=== PATIENT | female | born 2005 | race Hispanic/Latino ===

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

== ENCOUNTER 2023-10-23 23:48 | Emergency (ER) | payer SELFPAY ==
[2023-10-24 00:40] LABS: Bilirubin Neg (Negative); Blood, Urine 50 (Negative); Clarity Clear (Clear); Glucose, Urine (Dipstick) Normal (Negative); Ketone, Urine Negative (Negative); Leukocyte 500 (Negative); Nitrite Negative (Negative); Protein, Urine (Dipstick) Negative (Neg-Trace); Urobilinogen Normal mg/dL (Less than 2)
[2023-10-24 00:43] LABS: Pregnancy Test - Urine (BHCG) Negative (Negative); Pregu Control Background? CLEAR/WHITE (CLR/WHITE); Pregu Control Bar Appear? YES (CONTROL BAR)
[2023-10-24 00:47] LABS: Bacteria/HPF 3+ HPF (None Seen); CAUTI Indications for Culture Pelvic or flank pain; RBC/HPF 0-3 HPF (0-3); Squamous Epithelial 0-3 HPF (0-3)
[2023-10-24 00:48] LABS: Urine Culture Reflex No No
[2023-10-24] MEDS ORDERED: Ketorolac Tromethamine 30 MG (1 mL) VIAL ONE ×2 (01:13→02:48)
[2023-10-24] MEDS ORDERED: Acetaminophen 500 MG TAB ONE (02:49)
== END 2023-10-24 03:24 | disposition home or self-care (01) ==
LOC: CSHERS 23:48
DX: N10 Acute pyelonephritis (principal); Z55.9 Problems related to education and literacy, unspecified
CPT/HCPCS: 74176; 81001; 81025; 96374; 96376; J1885

== ENCOUNTER 2024-01-02 12:10 | Emergency (ER) | payer MEDICAID, SELFPAY ==
[2024-01-02] MEDS ORDERED: Metoclopramide HCl 10 MG (2 mL) VIAL ONE (12:48)
[2024-01-02] MEDS ORDERED: Acetaminophen 500 MG TAB ONE (12:48)
[2024-01-02 13:12] LABS: Bilirubin Neg (Negative); Blood, Urine Negative (Negative); Glucose, Urine (Dipstick) Normal (Negative); Ketone, Urine Negative (Negative); Leukocyte 500 (Negative); Nitrite Negative (Negative); Protein, Urine (Dipstick) 15 mg/dl (Neg-Trace); Specific Gravity, Urine 1.015 (1.005-1.030); Urobilinogen Normal mg/dL (Less than 2); pH, Urine 6.5 (5.0-9.0)
[2024-01-02 13:13] LABS: #Basophils 0.05 10x3/uL (0.0-0.2); #Eosinphils 0.09 10x3/uL (0.0-0.5); #Neutrophils 6.34 10x3/uL (1.5-8.4); %Basophils 0.6 % (0.0-2.0); %Eosinophils 1.1 % (0.0-6.0); %Lymphocytes 16.9 % (18.0-47.0); %Monocytes 5.9 % (0.0-10.0); %Neutrophils 75.3 % (40.0-75.0); Hematocrit 36.4 % (34.9-44.5); Mean Corpuscular Hemoglobin 27.2 pg (27.0-33.0); Mean Corpuscular Volume 82.5 fl (81.6-98.3); Mean Platelet Volume 10.9 fl (7.4-10.4); Platelet Count 252 10x3/uL (150-450); RBC Distribution Width 14.6 % (11.5-14.5); Red Blood Cell (RBC) Count 4.41 10x6/uL (3.90-5.03); White Blood Cell (WBC) Count 8.4 10x3/uL (3.5-10.5)
[2024-01-02 13:24] LABS: ALT (SGPT) 11 U/L (8-55); AST (SGOT) 13 U/L (5-34); Albumin 3.6 g/dL (3.5-5.0); Alkaline Phosphatase 113 U/L (40-100); Anion Gap 12 mmol/L (10-20); BUN (Urea Nitrogen) 7 mg/dL (7.0-18.7); Bilirubin, Total 0.3 mg/dL (0.2-1.2); Calc. Creatinine Clearance 0 mL/min (70-130); Carbon Dioxide 19 mmol/L (22-29); Chloride 107 mmol/L (98-107); Estimated GFR 129; Globulin 3.3 g/dL (2.4-3.5); Glucose 85 mg/dL (70-105); Lipase 11 U/L (8-78); Potassium 3.9 mmol/L (3.5-5.1); Protein, Total 6.9 g/dL (6.0-8.3); Sodium 134 mmol/L (136-145)
[2024-01-02 13:35] LABS: Clarity Hazy (Clear)
[2024-01-02 13:41] LABS: CAUTI Indications for Culture Pelvic or flank pain; RBC/HPF None Seen HPF (0-3)
[2024-01-02 13:42] LABS: Bacteria/HPF Rare-Few HPF (None Seen); Mucous/LPF 1+ LPF (<2+)
[2024-01-02 13:43] LABS: Urine Culture Reflex No No
== END 2024-01-02 17:04 | disposition home or self-care (01) ==
LOC: CSHERS 12:10
DX: O23.41 Unspecified infection of urinary tract in pregnancy, first trimester (principal); N39.0 Urinary tract infection, site not specified; O99.281 Endocrine, nutritional and metabolic diseases complicating pregnancy, first trimester; E87.1 Hypo-osmolality and hyponatremia; Z3A.13 13 weeks gestation of pregnancy
CPT/HCPCS: 76856; 80053; 81001; 83690; 84702; 85025; 87086; 87480; 87510; 87660; 96374; J2765

== ENCOUNTER 2024-02-12 17:58 | Emergency (ER) | payer MEDICAID, SELFPAY ==
[2024-02-12 19:28] LABS: #Basophils 0.04 10x3/uL (0.0-0.2); #Eosinphils 0.14 10x3/uL (0.0-0.5); #Monocytes 0.55 10x3/uL (0.0-1.1); #Neutrophils 7.35 10x3/uL (1.5-8.4); %Basophils 0.4 % (0.0-2.0); %Eosinophils 1.4 % (0.0-6.0); %Lymphocytes 15.9 % (18.0-47.0); %Monocytes 5.7 % (0.0-10.0); %Neutrophils 76.2 % (40.0-75.0); Hematocrit 36.9 % (34.9-44.5); Hemoglobin 12.6 g/dL (12.0-15.5); Mean Corpuscular HGB CONC 34.1 g/dL (32.0-36.0); Mean Corpuscular Hemoglobin 28.4 pg (27.0-33.0); Mean Corpuscular Volume 83.3 fL (81.6-98.3); Mean Platelet Volume 10.8 fL (7.4-10.4); Platelet Count 229 10x3/uL (150-450); RBC Distribution Width 14.2 % (11.5-14.5); Red Blood Cell (RBC) Count 4.43 10x6/uL (3.90-5.03); White Blood Cell (WBC) Count 9.7 10x3/uL (3.5-10.5)
[2024-02-12 19:45] LABS: ALT (SGPT) 10 U/L (8-55); AST (SGOT) 14 U/L (5-34); Albumin 3.3 g/dL (3.5-5.0); Alkaline Phosphatase 100 U/L (40-100); Anion Gap 12 mmol/L (10-20); BUN (Urea Nitrogen) 7 mg/dL (7.0-18.7); Bilirubin, Total 0.2 mg/dL (0.2-1.2); Calc. Creatinine Clearance 0 mL/min (70-130); Calcium 9.1 mg/dL (7.8-10.44); Carbon Dioxide 22 mmol/L (22-29); Chloride 105 mmol/L (98-107); Estimated GFR 130; Globulin 3.8 g/dL (2.4-3.5); Glucose 85 mg/dL (70-105); Lipase 13 U/L (8-78); Potassium 3.9 mmol/L (3.5-5.1); Protein, Total 7.1 g/dL (6.0-8.3); Sodium 135 mmol/L (136-145)
[2024-02-12 21:53] LABS: Bilirubin Neg (Negative); Blood, Urine Negative (Negative); Clarity Clear (Clear); Glucose, Urine (Dipstick) Normal (Negative); Ketone, Urine 50 mg/dL (Negative); Leukocyte 500 (Negative); Nitrite Negative (Negative); Protein, Urine (Dipstick) 15 mg/dl (Neg-Trace); Specific Gravity, Urine 1.015 (1.005-1.030); Urobilinogen Normal mg/dL (Less than 2); pH, Urine 6.5 (5.0-9.0)
[2024-02-12 22:06] LABS: CAUTI Indications for Culture Pelvic or flank pain
[2024-02-12 22:07] LABS: Bacteria/HPF 2+ HPF (None Seen); RBC/HPF 0-3 HPF (0-3); Transitional Epithelial 0-3 HPF (None Seen)
[2024-02-12 22:09] LABS: Urine Culture Reflex Yes Yes
[2024-02-13 20:32] LABS: Chlamydia by PCR, Vaginal Swab Not Detected (NotDetected); GC by PCR, Vaginal Swab Not Detected (NotDetected)
== END 2024-02-12 22:00 | disposition home or self-care (01) ==
LOC: CSHERS 17:58
DX: O23.41 Unspecified infection of urinary tract in pregnancy, first trimester (principal); N39.0 Urinary tract infection, site not specified; O20.9 Hemorrhage in early pregnancy, unspecified; Z3A.13 13 weeks gestation of pregnancy
CPT/HCPCS: 36415; 76801; 80053; 81001; 83690; 84702; 85025; 86900; 86901; 87086; 87480; 87491; 87510; 87591; 87660

== ENCOUNTER 2024-05-05 14:48 | Day surgery (SDC) | payer MEDICAID ==
[2024-05-05 15:23] VITALS: BMI 30.1
[2024-05-05] MEDS ORDERED: hydrALAZINE 20 MG/ML VIAL SLOW IVP PRN (15:33)
[2024-05-05] MEDS ORDERED: Morphine 4 MG/ML VIAL SLOW IVP PRN (16:46)
[2024-05-05] MEDS ORDERED: Acetaminophen 325 MG TAB PO PRN (16:47)
[2024-05-05 16:51] LABS: #Basophils 0.03 10x3/uL (0.0-0.2); #Eosinphils 0.13 10x3/uL (0.0-0.5); #Monocytes 0.64 10x3/uL (0.0-1.1); #Neutrophils 8.15 10x3/uL (1.5-8.4); %Basophils 0.3 % (0.0-2.0); %Eosinophils 1.2 % (0.0-6.0); %Lymphocytes 14.4 % (18.0-47.0); %Monocytes 6.1 % (0.0-10.0); %Neutrophils 77.4 % (40.0-75.0); Hematocrit 29.3 % (34.9-44.5); Hemoglobin 9.4 g/dL (12.0-15.5); Mean Corpuscular HGB CONC 32.1 g/dL (32.0-36.0); Mean Corpuscular Hemoglobin 26.9 pg (27.0-33.0); Mean Platelet Volume 11.1 fL (7.4-10.4); Platelet Count 171 10x3/uL (150-450); RBC Distribution Width 13.6 % (11.5-14.5); Red Blood Cell (RBC) Count 3.49 10x6/uL (3.90-5.03); White Blood Cell (WBC) Count 10.5 10x3/uL (3.5-10.5)
[2024-05-05 16:59] LABS: Bilirubin Neg (Negative); Blood, Urine Negative (Negative); Clarity Slightly Cloudy (Clear); Glucose, Urine (Dipstick) Normal (Negative); Ketone, Urine Negative (Negative); Leukocyte 500 (Negative); Nitrite Negative (Negative); Protein, Urine (Dipstick) 15 mg/dl (Neg-Trace); Specific Gravity, Urine 1.015 (1.005-1.030)
[2024-05-05] MEDS ORDERED: Acetaminophen 500 MG TAB PO SCH (17:00)
[2024-05-05 17:19] LABS: CAUTI Indications for Culture Pelvic or flank pain; RBC/HPF 0-3 HPF (0-3)
[2024-05-05 17:20] LABS: Bacteria/HPF 2+ HPF (None Seen); Mucous/LPF 2+ LPF (<2+)
[2024-05-05 17:21] LABS: Urine Culture Reflex Yes Yes
[2024-05-05] MEDS: Lactated Ringer's 1,000 ML IV SCH (18:02)
[2024-05-05] MEDS: cefTRIAXone\\ROCEPHIN 1 GM in Sodium Chloride 0.9% 100 ML IVPB SCH (18:02)
[2024-05-05 18:04] LABS: Fetal Membranes Rupture No Membranes Rupture (No Rupture)
[2024-05-05] MEDS: fentaNYL 50 mcg/mL 1 mL Vial SLOW IVP PRN (18:04)
== END 2024-05-05 20:09 | disposition home or self-care (01) ==
LOC: CSHLD/OP 14:48
PROVIDERS: ATTEND Obstetrics & Gynecology
DX: Z03.71 Encounter for suspected problem with amniotic cavity and membrane ruled out (principal); O99.891 Other specified diseases and conditions complicating pregnancy; R10.9 Unspecified abdominal pain; O46.92 Antepartum hemorrhage, unspecified, second trimester; O23.02 Infections of kidney in pregnancy, second trimester; N12 Tubulo-interstitial nephritis, not specified as acute or chronic; O99.612 Diseases of the digestive system complicating pregnancy, second trimester; K80.20 Calculus of gallbladder without cholecystitis without obstruction; O09.92 Supervision of high risk pregnancy, unspecified, second trimester; O23.42 Unspecified infection of urinary tract in pregnancy, second trimester; Z79.82 Long term (current) use of aspirin; Z79.899 Other long term (current) drug therapy; Z91.018 Allergy to other foods; Z88.8 Allergy status to other drugs, medicaments and biological substances; Z3A.24 24 weeks gestation of pregnancy
CPT/HCPCS: 76815; 81001; 84112; 85025; 87086; 96360; 99285; J0696; J3010

== ENCOUNTER 2024-05-23 12:49 | Day surgery (SDC) | payer MEDICAID ==
[2024-05-23 13:34] VITALS: BMI 28.9
[2024-05-23] MEDS ORDERED: hydrALAZINE 20 MG/ML VIAL SLOW IVP PRN (14:23)
[2024-05-23 15:12] LABS: #Basophils 0.03 10x3/uL (0.0-0.2); #Eosinphils 0.11 10x3/uL (0.0-0.5); #Monocytes 0.56 10x3/uL (0.0-1.1); #Neutrophils 7.43 10x3/uL (1.5-8.4); %Basophils 0.3 % (0.0-2.0); %Eosinophils 1.2 % (0.0-6.0); %Lymphocytes 12.7 % (18.0-47.0); %Monocytes 5.9 % (0.0-10.0); %Neutrophils 78.8 % (40.0-75.0); Hematocrit 28.1 % (34.9-44.5); Hemoglobin 9.2 g/dL (12.0-15.5); Mean Corpuscular HGB CONC 32.7 g/dL (32.0-36.0); Mean Corpuscular Hemoglobin 27.1 pg (27.0-33.0); Mean Corpuscular Volume 82.6 fL (81.6-98.3); Platelet Count 151 10x3/uL (150-450); White Blood Cell (WBC) Count 9.4 10x3/uL (3.5-10.5)
[2024-05-23 15:14] LABS: Fetal Membranes Rupture No Membranes Rupture (No Rupture)
[2024-05-23] MEDS: Fluconazole 100 MG TAB PO SCH (16:25)
== END 2024-05-23 16:45 | disposition home or self-care (01) ==
LOC: CSHLD/OP 12:49
PROVIDERS: ATTEND Obstetrics & Gynecology
DX: O26.852 Spotting complicating pregnancy, second trimester (principal); O99.012 Anemia complicating pregnancy, second trimester; O23.42 Unspecified infection of urinary tract in pregnancy, second trimester; O21.2 Late vomiting of pregnancy; O23.02 Infections of kidney in pregnancy, second trimester; N12 Tubulo-interstitial nephritis, not specified as acute or chronic; Z98.890 Other specified postprocedural states; Z79.899 Other long term (current) drug therapy; Z88.0 Allergy status to penicillin; Z91.018 Allergy to other foods; Z79.82 Long term (current) use of aspirin; Z3A.26 26 weeks gestation of pregnancy
CPT/HCPCS: 36415; 84112; 85025; 87480; 87510; 87660; 99284

== ENCOUNTER 2024-06-28 20:06 | Day surgery (SDC) | payer MEDICAID ==
[2024-06-28] MEDS ORDERED: hydrALAZINE 20 MG/ML VIAL SLOW IVP PRN (20:28)
[2024-06-28 21:04] VITALS: BMI 34.5
[2024-06-28 21:14] LABS: Bilirubin Neg (Negative); Blood, Urine Negative (Negative); Clarity Clear (Clear); Glucose, Urine (Dipstick) Normal (Negative); Ketone, Urine Negative (Negative); Leukocyte Negative (Negative); Nitrite Negative (Negative); Protein, Urine (Dipstick) 15 mg/dl (Neg-Trace); Specific Gravity, Urine 1.015 (1.005-1.030)
[2024-06-28 21:26] LABS: Bacteria/HPF Rare-Few HPF (None Seen); CAUTI Indications for Culture Pelvic or flank pain; RBC/HPF 0-3 HPF (0-3)
[2024-06-28 21:27] LABS: Urine Culture Reflex No No
[2024-06-28] MEDS ORDERED: Lactated Ringer's 1,000 ML IV SCH (21:30)
[2024-06-28] MEDS ORDERED: Acetaminophen 500 MG TAB PO SCH (21:30)
[2024-06-28 21:57] LABS: Fetal Membranes Rupture No Membranes Rupture (No Rupture)
== END 2024-06-28 23:05 | disposition home or self-care (01) ==
LOC: CSHLD/OP 20:06
PROVIDERS: ATTEND Obstetrics & Gynecology
DX: O99.891 Other specified diseases and conditions complicating pregnancy (principal); R10.2 Pelvic and perineal pain; M54.9 Dorsalgia, unspecified; O47.03 False labor before 37 completed weeks of gestation, third trimester; Z03.71 Encounter for suspected problem with amniotic cavity and membrane ruled out; R51.9 Headache, unspecified; R61 Generalized hyperhidrosis; R42 Dizziness and giddiness; Z88.0 Allergy status to penicillin; Z91.018 Allergy to other foods; Z79.899 Other long term (current) drug therapy; Z3A.32 32 weeks gestation of pregnancy
CPT/HCPCS: 51701; 81001; 84112; 87480; 87510; 87660; 96360; 96361; 99284

== ENCOUNTER 2024-08-02 19:32 | Day surgery (SDC) | payer OTHER ==
[2024-08-02 19:56] VITALS: BMI 33.3
[2024-08-02] MEDS ORDERED: hydrALAZINE 20 MG/ML VIAL SLOW IVP PRN (20:12)
[2024-08-02 20:43] LABS: Fetal Membranes Rupture No Membranes Rupture (No Rupture)
== END 2024-08-02 21:10 | disposition home or self-care (01) ==
LOC: CSHLD/OP 19:32
PROVIDERS: ATTEND Obstetrics & Gynecology
DX: O47.1 False labor at or after 37 completed weeks of gestation (principal); Z03.71 Encounter for suspected problem with amniotic cavity and membrane ruled out; O99.013 Anemia complicating pregnancy, third trimester; O26.893 Other specified pregnancy related conditions, third trimester; Z88.0 Allergy status to penicillin; Z91.018 Allergy to other foods; Z79.899 Other long term (current) drug therapy
CPT/HCPCS: 84112; 99285

== ENCOUNTER 2024-08-03 11:31 | Day surgery (SDC) | payer OTHER ==
[2024-08-03 12:00] VITALS: BMI 34.4
[2024-08-03] MEDS: Lactated Ringer's 1,000 ML IV SCH (12:37)
[2024-08-03 12:55] LABS: Fetal Membranes Rupture No Membranes Rupture (No Rupture)
[2024-08-03] MEDS: Ondansetron ODT 4 MG TAB PO PRN (13:01)
[2024-08-03 13:07] LABS: Bilirubin Neg (Negative); Blood, Urine Negative (Negative); Clarity Clear (Clear); Glucose, Urine (Dipstick) Normal (Negative); Ketone, Urine Negative (Negative); Leukocyte Negative (Negative); Nitrite Negative (Negative); Protein, Urine (Dipstick) 15 mg/dl (Neg-Trace); Specific Gravity, Urine 1.015 (1.005-1.030)
[2024-08-03 13:22] LABS: Bacteria/HPF Rare-Few HPF (None Seen); CAUTI Indications for Culture Pregnancy; RBC/HPF 0-3 HPF (0-3); Squamous Epithelial Greater than 50 HPF (0-3)
[2024-08-03 13:23] LABS: Urine Culture Reflex Yes Yes
== END 2024-08-03 13:48 | disposition home or self-care (01) ==
LOC: CSHLD/OP 11:31
PROVIDERS: ATTEND Obstetrics & Gynecology
DX: O21.2 Late vomiting of pregnancy (principal); O99.013 Anemia complicating pregnancy, third trimester; Z79.899 Other long term (current) drug therapy; Z91.013 Allergy to seafood; Z88.0 Allergy status to penicillin; Z3A.37 37 weeks gestation of pregnancy
CPT/HCPCS: 81001; 84112; 87086; 96360; 99284; Q0162

== ENCOUNTER 2024-08-17 22:37 | Day surgery (SDC) | payer MEDICAID, OTHER ==
[2024-08-17] MEDS ORDERED: hydrALAZINE 20 MG/ML VIAL SLOW IVP PRN (23:09)
[2024-08-17 23:37] VITALS: BMI 33.3
[2024-08-17] MEDS ORDERED: Acetaminophen 500 MG TAB PO SCH (23:45)
[2024-08-18 00:05] LABS: Fetal Membranes Rupture No Membranes Rupture (No Rupture)
== END 2024-08-18 01:30 | disposition home or self-care (01) ==
LOC: CSHLD/OP 22:37
PROVIDERS: ATTEND Family Medicine
DX: O47.1 False labor at or after 37 completed weeks of gestation (principal); Z03.71 Encounter for suspected problem with amniotic cavity and membrane ruled out; O99.013 Anemia complicating pregnancy, third trimester; Z3A.39 39 weeks gestation of pregnancy; Z88.1 Allergy status to other antibiotic agents; Z91.018 Allergy to other foods; Z79.899 Other long term (current) drug therapy
CPT/HCPCS: 84112; 99284

== ENCOUNTER 2024-08-18 19:00 | Inpatient (IN) | payer MEDICAID, OTHER ==
[~2024-08-18 19:00] MED LIST: Acetaminophen 500 MG TAB PO PRN; Carboprost 250 MCG/ML AMP IM PRN; Diphenoxylate HCl/Atropine Tablet PO PRN; Lidocaine 1% (PF) 30 ML VIAL SC PRN; Methylergonovine 0.2 MG/ML VIAL IM PRN; Misoprostol 100 MCG TAB VAG SCH; Misoprostol 200 MCG TAB PR PRN; Oxytocin 30 units/NS 500 ML 500 ML IV SCH; Promethazine HCl 25 MG/ML VIAL IM PRN; Tranexamic Acid 1,000 MG/10 ML VIAL IVP PRN; fentaNYL 50 mcg/mL 1 mL Vial SLOW IVP PRN; hydrALAZINE 20 MG/ML VIAL SLOW IVP PRN
[2024-08-18 22:22] VITALS: BMI 33.5
[2024-08-18 22:56] LABS: Hematocrit 33.4 % (34.9-44.5); Hemoglobin 11.1 g/dL (12.0-15.5); Mean Corpuscular HGB CONC 33.2 g/dL (32.0-36.0); Mean Corpuscular Volume 81.3 fL (81.6-98.3); Mean Platelet Volume 11.4 fL (7.4-10.4); Platelet Count 145 10x3/uL (150-450); RBC Distribution Width 19.3 % (11.5-14.5); Red Blood Cell (RBC) Count 4.11 10x6/uL (3.90-5.03); White Blood Cell (WBC) Count 7.7 10x3/uL (3.5-10.5)
[2024-08-18 23:26] LABS: HBsAg Index 0.19 S/CO (0-0.99); Hep B Surf Ag - L&D Non-Reactive S/CO (NonReactive)
[2024-08-18 23:27] LABS: Syphilis Antibody Nonreactive (Nonreactive); Syphilis Antibody Index 0.03 S/CO (<1.00 Non-Reactive)
[2024-08-18] MEDS: Oxytocin 30 units/NS 500 ML 500 ML IV SCH (23:47)
[2024-08-18] MEDS: Lactated Ringer's 1,000 ML IV SCH ×2 (23:48)
[2024-08-18] MEDS: Misoprostol 100 MCG TAB VAG SCH (23:48)
[2024-08-19] MEDS: fentaNYL/Ropivacaine Epidural 100 ML ONE (02:38)
[2024-08-19] MEDS ORDERED: Naloxone HCl 0.4 mg/ml Vial IVP PRN ×2 (02:46)
[2024-08-19] MEDS ORDERED: Ondansetron PF 4 MG/2 ML Vial IVP PRN (02:46)
[2024-08-19] MEDS ORDERED: Promethazine HCl 25 MG/ML VIAL IM PRN (02:46)
[2024-08-19] MEDS ORDERED: Acetaminophen 325 MG TAB PO PRN (02:46)
[2024-08-19] MEDS ORDERED: ePHEDrine Sulfate 50 MG/10 ML VIAL SLOW IVP PRN (02:46)
[2024-08-19] MEDS ORDERED: Moisturizing Cream (Eucerin) 113 GM JAR TOP PRN (02:46)
[2024-08-19] MEDS ORDERED: Lactated Ringer's 500 ML IV PRN (02:46)
[2024-08-19] MEDS ORDERED: diphenhydrAMINE 50 MG/ML VIAL IVP PRN (02:46)
[2024-08-19] MEDS ORDERED: Communication Order-Pharmacy FS SCH (03:00)
[2024-08-19] MEDS ORDERED: fentaNYL 2 mcg/Ropivacaine 0.2% Epidural 100 ML CADD EPIDURAL SCH (03:00)
[2024-08-19] MEDS: Ondansetron PF 4 MG/2 ML Vial IVP PRN (08:50)
[2024-08-19] MEDS ORDERED: Bisacodyl 10 MG SUPP PR PRN (13:09)
[2024-08-19] MEDS ORDERED: Methylergonovine 0.2 MG TAB PO PRN (13:09)
[2024-08-19] MEDS ORDERED: Milk Of Magnesia 30 ML UDCUP PO PRN (13:09)
[2024-08-19] MEDS ORDERED: Methylergonovine 0.2 MG/ML VIAL IM PRN (13:09)
[2024-08-19] MEDS ORDERED: Preparation H Ointment 28 GM TUBE PR PRN (13:09)
[2024-08-19] MEDS ORDERED: hydrALAZINE 20 MG/ML VIAL SLOW IVP PRN (13:09)
[2024-08-19] MEDS ORDERED: Misoprostol 200 MCG TAB VAG PRN (13:09)
[2024-08-19] MEDS ORDERED: Oxytocin 30 units/NS 500 ML 500 ML IV SCH (13:15)
[2024-08-19] MEDS: Ibuprofen 800 MG TAB PO SCH (13:58)
[2024-08-19] MEDS: Benzocaine-Menthol 82.5 ML CAN TOP PRN (18:34)
[2024-08-19] MEDS: Ferrous Sulfate 325 MG TAB PO SCH (19:12)
[2024-08-19] MEDS: Docusate 100 MG CAP PO SCH (21:03)
[2024-08-20 05:45] LABS: Hematocrit 30.7 % (34.9-44.5); Hemoglobin 9.8 g/dL (12.0-15.5)
[2024-08-20] MEDS: Polyethylene Glycol 3350 17 GM Packet PO SCH (07:53)
[2024-08-20] MEDS: Acetaminophen 325 MG TAB PO SCH (07:56)
[2024-08-20 12:07] VITALS: BP 100/66; TEMP 98.6
== END 2024-08-20 17:34 | disposition home or self-care (01) | DRG 807 ==
LOC: CSHLD 21:32 → CSHPP 08-19 15:42
PROVIDERS: ADMIT Obstetrics & Gynecology; ATTEND Obstetrics & Gynecology
PROC: 10E0XZZ Delivery of Products of Conception, External Approach (ICD-10-PCS; principal; 2024-08-19)
PROC: 0HQ9XZZ Repair Perineum Skin, External Approach (ICD-10-PCS; 2024-08-19)
DX: O99.02 Anemia complicating childbirth (principal); Z37.0 Single live birth; D64.9 Anemia, unspecified; Z3A.39 39 weeks gestation of pregnancy; Z88.0 Allergy status to penicillin; Z91.018 Allergy to other foods; O99.62 Diseases of the digestive system complicating childbirth; K80.20 Calculus of gallbladder without cholecystitis without obstruction; O70.0 First degree perineal laceration during delivery
CPT/HCPCS: 36415; 51702; 85014; 85018; 85027; 86780; 86850; 86900; 86901; 87340; J2405; J2590; J7120

== ENCOUNTER 2025-02-15 12:48 | Emergency (ER) | payer MEDICAID ==
[2025-02-15 14:59] LABS: BHCG - Serum Negative (NEGATIVE); Pregs Control Background? CLEAR/WHITE (CLR/WHITE); Pregs Control Bar Appear? YES (CONTROL BAR)
[2025-02-15 15:01] LABS: ALT (SGPT) 11 U/L (Less than 34); AST (SGOT) 19 U/L (11-34); Albumin 4.2 g/dL (3.1-4.5); Alkaline Phosphatase 125 U/L (40-110); Anion Gap 13 mmol/L (10-20); BUN (Urea Nitrogen) 11 mg/dL (7.0-18.7); Bilirubin, Total 0.3 mg/dL (0.3-1.2); Calc. Creatinine Clearance 0 mL/min (70-130); Calcium 9.1 mg/dL (7.8-10.44); Carbon Dioxide 24 mmol/L (22-29); Chloride 106 mmol/L (98-107); Globulin 3.4 g/dL (2.4-3.5); Glucose 82 mg/dL (70-105); Potassium 4.1 mmol/L (3.5-5.1); Sodium 139 mmol/L (136-145)
[2025-02-15 15:08] LABS: Troponin I Less than 0.010 ng/mL (< 0.028)
[2025-02-15 15:16] LABS: #Basophils 0.04 10x3/uL (0.0-0.2); #Eosinophils 0.06 10x3/uL (0.0-0.5); #Monocytes 0.42 10x3/uL (0.0-1.1); #Neutrophils 5.39 10x3/uL (1.5-8.4); %Basophils 0.5 % (0.0-2.0); %Eosinophils 0.8 % (0.0-6.0); %Lymphocytes 22.8 % (18.0-47.0); %Monocytes 5.5 % (0.0-10.0); %Neutrophils 70.1 % (40.0-75.0); Hematocrit 38.9 % (34.9-44.5); Hemoglobin 13.1 g/dL (12.0-15.5); Mean Corpuscular Hemoglobin 28.4 pg (27.0-33.0); Mean Corpuscular Volume 84.4 fL (81.6-98.3); Platelet Count 267 10x3/uL (150-450); Red Blood Cell (RBC) Count 4.61 10x6/uL (3.90-5.03); White Blood Cell (WBC) Count 7.68 10x3/uL (3.5-10.5)
[2025-02-15] MEDS ORDERED: Aspirin Chewable 81 MG TAB ONE (15:45)
[2025-02-15 17:29] LABS: Troponin I Less than 0.010 ng/mL (< 0.028)
== END 2025-02-15 17:45 | disposition home or self-care (01) ==
LOC: CSHERS 12:48
DX: R07.2 Precordial pain (principal)
CPT/HCPCS: 36415; 71045; 80053; 84484; 84703; 85025; 85379; 93005

== ENCOUNTER 2025-08-01 12:11 | Emergency (ER) | payer MEDICAID ==
[2025-08-01 12:58] LABS: Glucose, Urine (Dipstick) Normal (Negative); Leukocyte 500 (Negative); Protein, Urine (Dipstick) 30 mg/dl (Neg-Trace); Specific Gravity, Urine 1.025 (1.005-1.030)
[2025-08-01 13:10] LABS: Bacteria/HPF 3+ HPF (None Seen); CAUTI Indications for Culture Pregnancy; RBC/HPF 0-3 HPF (0-3); WBC/HPF 21-50 HPF (0-3)
[2025-08-01 13:11] LABS: Urine Culture Reflex Yes Yes
[2025-08-01 13:18] LABS: #Basophils Less than 0.03 10x3/uL (0.0-0.2); #Eosinophils Less than 0.03 10x3/uL (0.0-0.5); #Monocytes 0.36 10x3/uL (0.0-1.1); #Neutrophils 3.43 10x3/uL (1.5-8.4); %Basophils 0.2 % (0.0-2.0); %Eosinophils 0.0 % (0.0-6.0); %Lymphocytes 13.8 % (18.0-47.0); %Monocytes 8.1 % (0.0-10.0); %Neutrophils 77.7 % (40.0-75.0); Hematocrit 39.2 % (34.9-44.5); Hemoglobin 13.1 g/dL (12.0-15.5); Mean Corpuscular Hemoglobin 27.6 pg (27.0-33.0); Mean Corpuscular Volume 82.5 fL (81.6-98.3); Platelet Count 178 10x3/uL (150-450); Red Blood Cell (RBC) Count 4.75 10x6/uL (3.90-5.03); White Blood Cell (WBC) Count 4.42 10x3/uL (3.5-10.5)
[2025-08-01 13:37] LABS: ALT (SGPT) 21 U/L (Less than 34); AST (SGOT) 35 U/L (11-34); Albumin 3.5 g/dL (3.1-4.5); Alkaline Phosphatase 102 U/L (40-110); Anion Gap 12 mmol/L (10-20); BUN (Urea Nitrogen) 7 mg/dL (7.0-18.7); Bilirubin, Total 0.2 mg/dL (0.3-1.2); Calc. Creatinine Clearance 0 mL/min (70-130); Calcium 9.0 mg/dL (7.8-10.44); Carbon Dioxide 22 mmol/L (22-29); Chloride 104 mmol/L (98-107); Globulin 3.6 g/dL (2.4-3.5); Glucose 85 mg/dL (70-105); Potassium 3.6 mmol/L (3.5-5.1); Sodium 134 mmol/L (136-145)
== END 2025-08-01 14:26 | disposition home or self-care (01) ==
LOC: CSHERS 12:11
DX: O20.0 Threatened abortion (principal); O23.41 Unspecified infection of urinary tract in pregnancy, first trimester; N39.0 Urinary tract infection, site not specified; Z3A.08 8 weeks gestation of pregnancy
CPT/HCPCS: 36415; 76856; 80053; 81001; 84702; 85025; 86900; 86901; 87086; 87428